=== PATIENT | female | born 1955 | race Two or more races ===

== ENCOUNTER 2018-02-13 17:54 | Emergency (ER) | payer OTHER ==
[~2018-02-13] VITALS: Ht 154.9 cm; Wt 59.1 kg
[~2018-02-13 17:54] MED LIST: BENADRYL25 MG PO; ERGOCALCIF50000 UNIT PO; GLYBURIDE2.5 MG PO; IMITREX100 MG PO; IRON325 M1 PO; MOTRIN800 MG PO; NO MEDS; NOHOMEMEDS; OXYCODONE HCL5 MG PO; PERCOCET 5/31 TABLET PO; SENNA PLUS TAB1 EACH PO; SIMVASTATIN20 MG PO; TRAMADOL HCL50 MG PO; XANAX0.25 MG PO; XARELTO10 MG PO
[2018-02-13 18:56] LABS: HEMATOCRIT 36.6 % (36.0-46.0); HEMOGLOBIN 12.3 G/DL (11.9-15.5); MCH 28.2 PG (29.0-34.0); MCHC 33.6 G/DL (30.0-36.0); MCV 83.9 FL (83-99); PLATELET COUNT 260 K/uL (156-360); RBC DIS.WIDTH-CV 12.4 % (11.8-14.6); RBC DIS.WIDTH-SD 37.6 % (39-53); RED BLOOD COUNT 4.36 M/uL (3.80-5.20); WHITE BLOOD COUNT 6.8 K/uL (4.1-10.2)
[2018-02-13 19:06] LABS: CHLORIDE 107 mEq/L (99-109); POTASSIUM 3.9 mEq/L (3.7-5.4); SODIUM 141 mEq/L (136-147)
[2018-02-13 19:07] LABS: GLUCOSE 95 mg/dL (70-99)
[2018-02-13 19:11] LABS: CREATININE 0.9 mg/dL (0.6-1.3); GFR ESTIMATE (CALCULATED) > 59 mL/min/
[2018-02-13 19:12] LABS: UREA NITROGEN (BUN) 16 mg/dL (9-23)
[2018-02-13 19:17] LABS: TROP-I INTERPRETATION NEGATIVE; TROPONIN-I < 0.01 ng/mL (0.0-0.30)
[2018-02-13 21:10] VITALS: BP 144/79
== END 2018-02-13 21:10 | disposition home or self-care (01) ==
LOC: EME 17:54
PROVIDERS: Nurse Practitioner Family
DX: M25.561 Pain in right knee (principal); M54.2 Cervicalgia; R07.9 Chest pain, unspecified; S09.90XA Unspecified injury of head, initial encounter; V49.50XA Passenger injured in collision with unspecified motor vehicles in traffic accident, initial encounter; M25.78 Osteophyte, vertebrae; E11.9 Type 2 diabetes mellitus without complications; Z79.84 Long term (current) use of oral hypoglycemic drugs
CPT/HCPCS: 70450; 71046; 72125; 73564; 80048; 84484; 85027; 93005; 99281; 99284